=== PATIENT | female | born 1985 | race Caucasian/White ===

== ENCOUNTER → 2020-02-22 15:06 | Outpatient (BNVA) | payer OTHER, SELFPAY | PROVIDERS: Visit Provider Obstetrics & Gynecology | DX: Z76.89 Persons encountering health services in other specified circumstances (principal) ==

== ENCOUNTER 2020-03-24 14:54 | Outpatient (REF) | payer OTHER, SELFPAY ==
[2020-03-29 19:41] LABS: HPV mRNA E6/E7 rflx Not Detected (Not Detected)
== END 2020-03-24 14:55 | disposition home or self-care (01) ==
LOC: HO.LAB 14:54
PROVIDERS: Visit Provider Obstetrics & Gynecology
DX: Z01.419 Encounter for gynecological examination (general) (routine) without abnormal findings (principal); F17.210 Nicotine dependence, cigarettes, uncomplicated
CPT/HCPCS: 87624; 87625; 88142

== ENCOUNTER → 2020-04-11 13:00 | Outpatient (BNVA) | payer OTHER, SELFPAY | PROVIDERS: Visit Provider Obstetrics & Gynecology | DX: Z76.89 Persons encountering health services in other specified circumstances (principal) ==

== ENCOUNTER 2023-06-12 14:15 | Outpatient (AMB) | payer OTHER, SELFPAY ==
--- NOTE | 2023-06-12 14:26 | A.OFFVIS_ITS ---
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 Sexually active: Yes Sexual orientation: Straight/Heterosexual Gender identity: Female Female Reproductive History Menstrual Age of Menarche: 11 Total pregnancies: 6 Full term: 1 Number of Living Children: 1 Ab spontaneous: 5 Date of last pap smear: 03/25/20 Review of Systems Const All systems reviewed & are unremarkable except as noted in HPI and below Card Reports as per HPI Resp Reports as per HPI GI Reports as per HPI and Reports no additional complaints Reports as per HPI Physical Exam Vital Signs: Last Vital Signs BP 122/80 06/12/23 14:28 BMI result Body Mass Index 24.2 Const General: cooperative, healthy appearing and comfortable Chest Chest palpation & inspection: normal inspection of the chest and normal palpation of entire chest wall Breast/axilla inspection: normal inspection of the breasts and normal inspection of the axillae Breast/axilla palpation: normal palpation of the breasts, normal palpation of the axillae and no axillary lymphadenopathy Resp Effort & Inspection: normal respiratory effort Auscultation: clear to auscultation bilaterally Percussion: percussion normal Cardio Palpation: normal PMI Rate: regular rate Rhythm: regular rhythm Heart sounds: no murmurs and no rubs Peripheral pulses: Peripheral pulses 2+ throughout GI Inspection: Yes normal to inspection Palpation (GI): Soft to palpation, nontender, no guarding, not rigid and No hepatosplenomegaly present Percussion: Yes normal to percussion Auscultation: normal bowel sounds Rectal Exam - Female: deferred General: Yes bladder normal to palpation External Female Exam: No lesion Speculum Exam - Vagina: normal appearance of the vagina, normal palpation, normal vaginal discharge and not erythematous Speculum Exam - Cervix: normal appearance of the cervix, normal palpation and Other cervical findings present (IUD string seen) Bimanual exam- vagina & uterus: normal bimanual exam, normal palpation, uterine size normal, bladder normal to palpation, consistency normal and normal palpation Bimanual Exam- Adnexa, other: normal adnexae, no masses and no tenderness Assessment & Plan Assessment & Plan (1) Well woman exam: Code(s): Z01.419 - Encounter for gynecological examination (general) (routine) without abnormal findings Plan: Cotesting not indicated this. Counseled the patient about the recommended dietary allowance of 1000 mg of Ca lcium & 600 IU of vitamin D. The patient was instructed to perform monthly self-breast exams and to schedule an annual exam in a year; All questions answered and the patient verbalized understanding. Instructed the patient to schedule annual exam in a year (2) Microscopic hematuria: Code(s): R31.29 - Other microscopic hematuria Plan: Urine dip showed microscopic hematuria, will send urine for culture. Instructions given to patient to schedule a 2 week urine dip follow-up. If urin e microscopic hematuria is persistent with negative urine culture will treat accordingly. All questions answered, the patient verbalized understanding Coding Level of Care Code Est Pt Prev Care 18-39y(99777) Diagnoses Well woman exam Z01.419 Microscopic hematuria R31.29
[2023-06-12 14:28] VITALS: BP 122/80; BMI 24.2
== END 2023-06-12 14:52 | disposition home or self-care (01) ==
LOC: HO.HWS 14:15
PROVIDERS: Visit Provider Obstetrics & Gynecology
DX: Z01.419 Encounter for gynecological examination (general) (routine) without abnormal findings (principal); R31.29 Other microscopic hematuria
CPT/HCPCS: 99395

== ENCOUNTER 2023-06-12 14:15 | Outpatient (REF) | payer OTHER, SELFPAY | END 2023-06-12 14:16 | disposition home or self-care (01) | LOC: HO.LNP 14:15 | PROVIDERS: Visit Provider Obstetrics & Gynecology | DX: R31.29 Other microscopic hematuria (principal) | CPT/HCPCS: 81002; 87086 ==

== ENCOUNTER 2023-06-26 14:46 | Outpatient (AMB) | payer OTHER, SELFPAY ==
--- NOTE | 2023-06-26 14:57 | MHC.OFFVIS ---
Intake Vital Signs 06/26/23 15:04 Height 5 ft 6 in Weight 149 lb 14.629 oz BMI 24.2 BP 126/82 Intake Visit Reasons: Urine dip Allergies No Known Allergies Allergy (Verified 06/12/23 14:29) HPI HPI Comments History of Present Illness Details The patient is presenting for repeat urine dip for microscopic hematuria. 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 Sexual orientation: Straight/Heterosexual Gender identity: Female Female Reproductive History Menstrual Age of Menarche: 11 Date of last menstrual period: 06/26/23 Review of Systems Const All systems reviewed & are unremarkable except as noted in HPI and below Reports as per HPI and Reports no additional complaints GI Reports no additional complaints Reports no additional complaints Physical Exam Vital Signs: Last Vital Signs BP 126/82 06/26/23 15:04 BMI result Body Mass Index 24.2 Assessment & Plan Assessment & Plan (1) Microscopic hematuria: Code(s): R31.29 - Other microscopic hematuria Plan: Repeat urine dip in the office was positive for microscopic hematuria but since the patient is started on her menstrual cycle will order urinalysis to be done after the completion of her menstrual cycle if persistent microscopic hematuria will order CT scan of abdomen and pelvis and refer to urology. Instructions given to patient to call after submitting her urinalysis sample to discussed next step in the management plan. All questions answered, the patient verbalized understanding and agreed with the plan Orders: Orders UA w Microscopic Today R31.29 - Other microscopic hematuria Coding Level of Care Code Est Pt Level 3 (11247) Diagnoses Microscopic hematuria R31.29
[2023-06-26 15:04] VITALS: BP 126/82; BMI 24.2
== END 2023-06-26 15:29 | disposition home or self-care (01) ==
LOC: HO.HWS 14:46
PROVIDERS: Visit Provider Obstetrics & Gynecology
DX: R31.29 Other microscopic hematuria (principal)
CPT/HCPCS: 99213

== ENCOUNTER → 2023-06-26 14:46 | Outpatient (BNVA) | payer OTHER, SELFPAY | PROVIDERS: Visit Provider Obstetrics & Gynecology ==

== ENCOUNTER 2023-07-19 15:18 | Outpatient (REF) | payer OTHER, SELFPAY ==
[2023-07-19 15:43] LABS: Appearance Urine Clear; Color Urine Yellow; Glucose Urine UA Negative (Negative); Leukocyte Esterase Urine Small (1+) (Negative); Nitrite Urine Negative (Negative); PH 6.5 (5.0-9.0); Specific Gravity - Urine <= 1.005 (1.005-1.025); UMIC TRIGGER UA YES; Urine Blood Negative (Negative); Urine Ketones Trace mg/dL (Negative); Urine Protein Negative (Neg-Trace)
[2023-07-19 15:46] LABS: Bacteria Urine 1+ (None Seen); Hyaline Casts Urine 0-2 /LPF (0-2); RBC Urine 0-2 /HPF (0-2); Squamous Epithelial Cell Urine 0-2 /HPF (0-2)
== END 2023-07-19 15:19 | disposition home or self-care (01) ==
LOC: HO.LAB 15:18
PROVIDERS: Visit Provider Obstetrics & Gynecology
DX: R31.29 Other microscopic hematuria (principal)
CPT/HCPCS: 81001

== ENCOUNTER 2024-06-16 08:12 | Outpatient (REF) | payer OTHER, SELFPAY ==
[2024-06-26 15:07] LABS: HPV Genotype 16 Negative (Negative); HPV Genotype 18 Negative (Negative); HPV High Risk Negative (Negative)
== END 2024-06-16 08:13 | disposition home or self-care (01) ==
LOC: HO.LNP 08:12
PROVIDERS: Visit Provider Obstetrics & Gynecology
DX: Z01.419 Encounter for gynecological examination (general) (routine) without abnormal findings (principal)
CPT/HCPCS: 87626; 88175